=== PATIENT | female | born 1975 | race Two or more races ===

== ENCOUNTER 2020-09-17 12:27 | Emergency (ER) | payer OTHER ==
[~2020-09-17] VITALS: Ht 167.6 cm; Wt 77.1 kg
[2020-09-17 14:30] VITALS: BP 131/93
== END 2020-09-17 15:10 | disposition home or self-care (01) ==
LOC: ER 12:27
DX: S40.012A Contusion of left shoulder, initial encounter (principal); S09.8XXA Other specified injuries of head, initial encounter; S16.1XXA Strain of muscle, fascia and tendon at neck level, initial encounter; S39.013A Strain of muscle, fascia and tendon of pelvis, initial encounter; S20.219A Contusion of unspecified front wall of thorax, initial encounter; V49.9XXA Car occupant (driver) (passenger) injured in unspecified traffic accident, initial encounter; Y93.89 Activity, other specified; Y92.89 Other specified places as the place of occurrence of the external cause; Y99.8 Other external cause status
CPT/HCPCS: 70450; 71046; 72125; 72192; 73030